=== PATIENT | male | born 1975 | race Caucasian/White ===

== ENCOUNTER 2017-07-10 09:06 | Day surgery (SDC) | payer OTHER ==
[2017-07-10] MEDS: NS 1,000 ML IV (09:00)
[2017-07-10] MEDS ORDERED: LIDOCAINE 2% INJ 100 MG/5 ML SDV (FOR ANES.) As Ordered (10:26)
[2017-07-10] MEDS ORDERED: PROPOFOL 200 MG/20 ML VIAL As Ordered (10:26)
[2017-07-10] MEDS ORDERED: fentaNYL 100 MCG/2 ML INJECTION (J3010) As Ordered (10:27)
== END 2017-07-10 11:16 | disposition home or self-care (01) ==
LOC: M OPP 09:06
DX: R12 Heartburn (principal); K21.9 Gastro-esophageal reflux disease without esophagitis; M94.0 Chondrocostal junction syndrome [Tietze]; Z87.19 Personal history of other diseases of the digestive system; Z79.899 Other long term (current) drug therapy; Z80.6 Family history of leukemia
CPT/HCPCS: 43235